=== PATIENT | male | born 1950 | race Caucasian/White ===

== ENCOUNTER 2020-07-23 06:52 | Outpatient (NON) | payer MEDICARE, OTHER, SELFPAY ==
[2020-07-23 19:59] LABS: SARS-CoV-2 RNA PCR Negative
== END 2020-07-23 06:53 ==
PROVIDERS: PCP Family Medicine; Visit Provider Physician Assistant
DX: Z20.828 Contact with and (suspected) exposure to other viral communicable diseases (principal)
CPT/HCPCS: 87635; C9803; U0003

== ENCOUNTER → 2021-09-04 10:14 | Outpatient (CLI) | payer MEDICARE, OTHER, SELFPAY ==
--- NOTE | ~2021-09-04 | XR_ITS ---
EXAMINATION: XR knee LT 2V DATE: 09/04/2021 10:30 INDICATION: Left knee pain TECHNIQUE: Two views of the left knee were obtained. COMPARISON: None. FINDINGS: Alignment is normal. No fracture or osteochondral lesion. There is mild tricompartmental os teoarthritis characterized by tiny marginal osteophytes and mild medial compartmental narrowing. A sm all joint effusion is present. Soft tissues are unremarkable. IMPRESSION: 1. Mild osteoarthritis with small joint effusion. Reviewed, dictated and finalized at location A. YNAECOLOGIST
== END ==
PROVIDERS: PCP Physician Assistant; Visit Provider Physician Assistant
DX: M25.462 Effusion, left knee (principal); M17.12 Unilateral primary osteoarthritis, left knee
CPT/HCPCS: 73560

== ENCOUNTER 2022-02-18 08:58 | Outpatient (CLI) | payer MEDICARE, OTHER, SELFPAY ==
--- NOTE | ~2022-02-18 | MR_ITS ---
EXAMINATION: MR knee LT wo con DATE: 02/18/2022 09:51 INDICATION: Left knee pain post baseball injury TECHNIQUE: Magnetic resonance imaging (MRI) of the left knee was performed without intravenous contra st. Sequences included coronal PD-weighted FSE, coronal PD-weighted FS FSE, sagittal T2-weighted FSE , sagittal PD-weighted FS FSE and axial PD weighted fat saturated FSE. COMPARISON: None. FINDINGS: Medial compartment: Complex tear at the posterior horn and medial extruded body of the medial meniscus. Partial-thickness chondral ulceration and fissuring without degenerative subchondral changes along the anterior to misa tral weightbearing medial femoral condyle and medial tibial plateau. Lateral compartment: Lateral meniscus is normal. Deep chondral fissuring with small focus of edema-like signal change at t he posterior aspect of the lateral tibial plateau. Patellofemoral compartment: Deep chondral ulceration along the mid to inferior aspect of the medial and lateral trochlea and inte rvening trochlear groove. A small mild cortical irregularity with small central subchondral osteophyt e and mild subarticular edema-like signal change at the medial trochlea. Deep chondral fissuring with tiny focus of subarticular edema-like signal change at the patellar apical ridge. Less severe partia l thickness chondral ulceration and fissuring without degenerative subchondral changes at the medial patellar facet and medial margin of the lateral facet. Ligaments and tendons: Anterior and posterior cruciate ligaments are normal. The fibular collateral ligament complex is norm al. Mild thickening and minimal increased signal of the proximal medial collateral ligament without s urrounding edema consistent with mild scarring related to chronic sprain. Patellar tendon is normal. Mild distal quadriceps tendinopathy. The visualized medial and lateral hamstring tendons as well as t he iliotibial band are normal. Fluid: Very small left knee joint effusion at the suprapatellar pouch. There is also a small Cason's cyst. N o loose osteochondral bodies identified. Osseous/other: Bone alignment is normal. No fracture or pathologic marrow replacing process. Low signal intensity [place] along the posterior weightbearing medial femoral condyle. IMPRESSION: 1. Complex tear of the body and posterior horn of the medial meniscus. 2. Mild tricompartmental osteoarthritis with regions of high-grade chondromalacia in the patellofemor al and lateral compartments and more extensive moderate grade chondromalacia in the medial compartmen t. 3. Mild scarring related to chronic sprain of the proximal medial collateral ligament. 4. Very small left knee joint effusion and small Cason's cyst. Reviewed, dictated and finalized at location B. IMPRESSION: 1. Complex tear of the body and posterior horn of the medial meniscus. 2. Mild tricompartmental osteoarthritis with regions of high-grade chondromalac ia in the patellofemoral and lateral compartments and more extensive moderate g rade chondromalacia in the medial compartment. 3. Mild scarring related to chronic sprain of the proximal medial collateral li gament. 4. Very small left knee joint effusion and small Cason's cyst.
== END 2022-02-18 08:59 | disposition home or self-care (01) ==
LOC: ANHIMG 09:00
PROVIDERS: PCP Physician Assistant; Visit Provider Physician Assistant
DX: S83.232A Complex tear of medial meniscus, current injury, left knee, initial encounter (principal); X58.XXXA Exposure to other specified factors, initial encounter; M17.12 Unilateral primary osteoarthritis, left knee; M25.462 Effusion, left knee
CPT/HCPCS: 73721

== ENCOUNTER 2022-04-08 12:44 | Outpatient (CLI) | payer MEDICARE, OTHER, SELFPAY ==
--- NOTE | 2022-04-08 12:51 | ECG_ITS ---
Measurements Intervals [place] Rate: 53 P: 24 TN: 190 QRS: 2 QRSD: 111 T: 34 QT: 400 QTc: 378 Interpretive Statements SINUS BRADYCARDIA DELAYED PRECORDIAL R/S TRANSITION CONSIDER INFERIOR INFARCT, AGE INDETERMINATE ABNORMAL ECG Electronically Signed On 04-08-2022 13:09:31 CDT by Ryan Hendrix D.O.
== END 2022-04-08 12:45 | disposition home or self-care (01) ==
PROVIDERS: PCP Physician Assistant; Visit Provider Orthopaedic Surgery
DX: I10 Essential (primary) hypertension (principal); Z01.818 Encounter for other preprocedural examination; R94.31 Abnormal electrocardiogram [ECG] [EKG]
CPT/HCPCS: 93005

== ENCOUNTER 2022-04-11 00:14 | Day surgery (SDC) | payer MEDICARE, OTHER, SELFPAY ==
--- NOTE | 2022-04-04 15:20 | PC.NURSE ---
Report to the Outpatient Waiting Room, entrance under the green pavilion located off [facility], at time _0700 on date __04/11/22 . OR Time: __0900 . - You and your visitor will be asked a series of questions to screen for COVID 19 for your protection. - Only one visitor is allowed at this time. - The patient visitor is requested to leave or wait in car when not with patient. - A mask is required within the hospital. Patients may have clear liquids (water, carbonated beverages, clear teas, apple juice) until 3 hours prior to surgery with a maximum of 20 ounces. - No food from midnight until time of surgery - Infants may have breast milk until 4 hours before surgery, infant formula 6 hours prior to surgery. - Children will be allowed to drink immediately following surgery. If applicable, please bring a bottle or sippy cup to assist with drinking. Juice, water, soda, and popsicles are readily available. For infants on formula, please bring formula the day of surgery. Pacifiers are allowed. Take the following medications with a SIP of water the morning of surgery: ____METOPROLOL Medications to discontinue per physician __PT STATES ASPIRIN 7 DAYS PRE OP. _ ALL VITAMINS AND SUPPLEMENTS 3 DAYS PRE OP Date to take last dose___04/03/22____ALL VIT/SUPP 04/07/22 Please no make-up, nail danish, hairspray, perfume, deodorant, or body powder the day of surgery. No jewelry (including any body piercings) or valuables the day of surgery, leave them at home. Please take a shower or bath the night before, or the morning of, surgery with an antibacterial soap. Wear comfortable, loose fitting clothing. Children are encouraged to wear pajamas. - Jewelry must be removed prior to entering the operating room. Rings and piercings that are not removed may be cut off. - The hospital will not accept responsibility for valuables. - Please leave all valuables, including medications, at home the day of surgery. If you are going home after surgery, a licensed passenger coach driver must drive you home. - NO public transportation without another adult. - We recommend that an adult stay with you for 24 hours following discharge. - We also recommend that you do not drive, make important decision, drink alcoholic beverages, or take any drugs that were not prescribed by your health care provider for at least 24 hours after your discharge time. For Pediatric surgeries, we recommend two adults accompany the child home (only one inside the building at this time). Follow any additional instructions given to you from your surgeon. If you or anyone in your household have experienced Covid symptoms in the past week, please notify your surgeon or the nurse liaison at the phone number below for possible testing. Telephone instructions given to __PATIENT and asked if any additional questions and then verbalized understanding. Patient advised to call surgeon office or pre surgery nurse liaison [phone] if any additional questions.
[2022-04-04 15:30] VITALS: BMI 29.2
--- NOTE | 2022-04-10 10:42 | WPDANESEPPF ---
Anes - Initial Pre Proc Eval Procedure: Operation Date: 04/11/22 09:00 Proposed Procedures p Left Knee Arthroscopy, Proceed As Indicated - Jesus Rivers MD <Obdulio Davison MD - Last Filed: 04/10/22 10:43> Date/Time: 04/10/22 10:42 <Obdulio Davison MD - Last Filed: 04/10/22 10:43> Surgeon: Jesus Rivers MD <Obdulio Davison MD - Last Filed: 04/10/22 10:43> Pre Op Diagnosis: left knee medial meniscus tear <Obdulio Davison MD - Last Filed: 04/10/22 10:43> Patient Data Age: 72 Gender: M Height: 1.83 m Weight: 97.6 kg <Obdulio Daviosn MD - Last Filed: 04/10/22 10:43> Allergies Allergy/AdvReac Type Severity Reaction Status Date / Time CATS Allergy Mild EYES Uncoded 04/04/22 15:08 ITCHING DUST Allergy Mild Itching Uncoded 04/11/22 08:02 <Obdulio Davison MD - Last Filed: 04/10/22 10:43> Home Medications Medication Instructions Recorded Confirmed Type atorvastatin 10 mg tablet 10 mg PO EVERY OTHER DAY 03/13/22 04/04/22 History fluticasone propionate 50 2 spray intranasal DAILY 03/13/22 04/04/22 History mcg/actuation nasal spray,suspension (Allergy Relief (fluticasone)) lisinopril 20 mg tablet 20 mg PO DAILY 03/13/22 04/04/22 History metoprolol succinate 100 mg 100 mg PO DAILY 03/13/22 04/04/22 History tablet,extended release 24 hr xmfejyon-omz-ltzdp acid 300 1 tablet PO DAILY 03/13/22 04/04/22 History mcg-lycopene 600 mcg-lutein 300 mcg tablet (Centrum Silver Men) omega-3 fatty acids-fish oil 340 1 cap PO DAILY 03/13/22 04/04/22 History mg-1,000 mg capsule (Fish Oil) omeprazole 20 mg capsule,delayed 20 mg PO DAILY 03/13/22 04/04/22 History release aspirin 81 mg tablet,delayed 81 mg PO HS 07/15/22 07/15/22 History release (Adult Low Dose Aspirin) chlorhexidine gluconate 4 % 1 applic topical ONCE #237 mL 04/04/22 04/04/22 Rx topical liquid (Hibiclens) <Obdulio Davison MD - Last Filed: 04/10/22 10:43> Patient hx anesthesia problems: none <Delonte Winkler DO - Last Filed: 04/11/22 08:20> Family hx anesthesia problems: none <Delonte Winkler DO - Last Filed: 04/11/22 08:20> Results Review: All pre-operative results and documents have been reviewed as part of the pre-operative evaluation. <Obdulio Davison MD - Last Filed: 04/10/22 10:43> [facility] Past Medical History Medical History: Medical History (Updated 04/10/22 @ 10:43 by Obdulio Davison MD) Arthritis HTN (hypertension) Hyperlipidemia Medial meniscus tear Ureterolithiasis <Obdulio Davison MD - Last Filed: 04/10/22 10:43> Family History Family History: Family History (Updated 05/18/14 @ 07:13 by DOCTOR UNKNOWN) Mother Family history of congestive heart failure Other Family history of cardiovascular disease Hypertension <Obdulio Davison MD - Last Filed: 04/10/22 10:43> Social History Social History: Social History (Updated 03/13/22 @ 11:33 by Josie Yan MA) Smoking status: Never smoker Alcohol intake: current Drinks per week: 1 Substance use: never Living arrangements: with family Gender identity (if verbalized by the patient): Male Spiritual care concerns: No <Obdulio Davison MD - Last Filed: 04/10/22 10:43> Anes - Eval Final PreProcedure Day of Procedure 04/10/22 10:42 <Obdulio Davison MD - Last Filed: 04/10/22 10:43> Patient weight: overweight <Obdulio Davison MD - Last Filed: 04/10/22 10:43> Heart: regular rate and rhythm <Obdulio Davison MD - Last Filed: 04/10/22 10:43> Lungs: clear to auscultation and normal air movement <Obdulio Davison MD - Last Filed: 04/10/22 10:43> Airway: Mallampati scale class II <Obdulio Davison MD - Last Filed: 04/10/22 10:43> Neurological: alert and oriented <Obdulio Davison MD - Last Filed: 04/10/22 10:43> Last oral intake: >/= 8 hours <Obdulio Jara
[2022-04-11] VITALS (8 sets, daily range): BP systolic 121–135; BP diastolic 68–85; PULSE 49–56; RESP 10–18; TEMP 36.5–36.6; O2SAT 96–100
--- NOTE | 2022-04-11 07:15 | WPDHPUPDATE1 ---
History and Physical Update Update Date/Time: 04/11/22 07:15 History and Physical has been reviewed, including an updated exam of the patient. There are NO changes in the patient's condition. Risks, benefits, and alternatives have been discussed and questions answered. Patient agrees to proceed with procedure.
[2022-04-11] MEDS: LACTATED RINGERS 1,000 ML 30 ML IV CONT ×2 (07:52→10:36)
[2022-04-11] MEDS: CELECOXIB 200 MG CAPSULE PO (07:53)
[2022-04-11] MEDS: ACETAMINOPHEN 500 MG TABLET 1000 MG PO (07:53)
[2022-04-11] MEDS: ceFAZolin 2 GM/D5W 50 ML 2 GM/50 ML BAG IVPB (09:23)
[2022-04-11] MEDS: BUPIVACAINE HCL 0.5% PF 30 ML VIAL INFILTRATE (09:44)
[2022-04-11] MEDS: methylPREDNISolone ACETATE 80 MG/ML VIAL IM (10:23)
--- NOTE | 2022-04-11 11:05 | W.PM.PROC2 ---
Procedure Note - Detailed Date of Procedure 04/11/22 Pre-op Diagnosis left knee medial meniscus tear Post-op Diagnosis Same Procedure Performed LEFT KNEE SCOPE Surgeon Jesus Rivers MD Anesthesia General Description of Procedure PATIENT WAS TAKEN TO THE OR. LEFT LEG WAS PREPPED AND DRAPED STERILE. TROCARS WERE PLACED IN THE USUAL FASHION. CAMERA WAS INTRODUCED. THERE WAS CHONDROMALACIA TO THE PATELLA FEMORAL JOINT. THERE WAS A LOT OF SYNOVITIS IN ALL COMPARTMENTS. THE MEDIAL COMPARTMENT SHOWED CHONDROMALACIA TO THE MEDIAL FEMORAL CONDYLE. A SHAVER WAS USED TO PREFORM A CHONDROPLASTY. THERE WAS A COMPLEX MEDIAL MENISCUS TEAR. THE TEAR WAS RESECTED WITH A BITER AND A SHAVER DOWN TO A SMOOTH BASE. ABOUT 30% OF THE MENISCUS WAS REMOVED. THE ACL WAS INTACT. THE LATERAL MENISCUS WAS NOT TORN. THE LAT COMPARTMENT HAD MINIMAL CHONDROMALACIA. CHONDROPLASTY WAS PREFORMED. A SYNOVECTOMY WAS PREFORMED WELL. THE PATELLO FEMORAL JOINT UNDERWENT CHONDROPLASTY. THERE WAS GRADE 3 CHONDROMALACIA IN PART OF THE TROCHLEA AND GRADE 2 OVER THE PATELLA. SYNOVECTOMY WAS PREFORMED IN THE SUPERIOR MEDIAL COMPARTMENT. THE WOUNDS WERE APPROXIMATED WITH 4.0 NYLON. STERILE DRESSING WAS APPLIED. PATIENT WAS EXTUBATED. Estimated Blood Loss 5 Complications No immediate complications Condition Stable Disposition PACU
== END 2022-04-11 12:25 | disposition home or self-care (01) ==
PROVIDERS: PCP Physician Assistant; Visit Provider Orthopaedic Surgery
PROC: (CPT 29870; principal; 2022-04-11 09:00)
DX: S83.232A Complex tear of medial meniscus, current injury, left knee, initial encounter (principal); M22.42 Chondromalacia patellae, left knee; M65.862 Other synovitis and tenosynovitis, left lower leg; X50.0XXA Overexertion from strenuous movement or load, initial encounter; I10 Essential (primary) hypertension; E78.5 Hyperlipidemia, unspecified; Z79.82 Long term (current) use of aspirin
CPT/HCPCS: 29881; A9270; J0690; J1040; J1100; J2405; J2704; J3010; J7120

== ENCOUNTER 2022-11-11 00:21 | Day surgery (SDC) | payer MEDICARE, OTHER, SELFPAY ==
[2022-10-27 09:51] VITALS: BMI 29.2
--- NOTE | 2022-11-10 15:31 | P.PNAN_ITS ---
Anes - Initial Pre Proc Eval Procedure: Operation Date: 11/11/22 09:00 Proposed Procedures p Colonoscopy - Cedric Armas MD Date/Time: 11/10/22 15:31 Surgeon: Cedric Armas MD Pre Op Diagnosis: neoplasia screening Patient Data Age: 72 Gender: M Height: 1.83 m Weight: 97.8 kg Allergies Allergy/AdvReac Type Severity Reaction Status Date / Time cat dander Allergy Itching Verified 11/11/22 07:39 DUST Allergy Mild Itching Uncoded 11/11/22 07:39 Home Medications Medication Instructions Recorded Confirmed Type fluticasone propionate 50 2 spray intranasal DAILY 03/13/22 11/11/22 History mcg/actuation nasal spray,suspension (Allergy Relief (fluticasone)) lisinopril 20 mg tablet 20 mg PO DAILY 03/13/22 11/11/22 History metoprolol succinate 100 mg 100 mg PO DAILY 03/13/22 11/11/22 History tablet,extended release 24 hr ccdqckza-lyn-zotmi acid 300 1 tablet PO DAILY 03/13/22 11/11/22 History mcg-lycopene 600 mcg-lutein 300 mcg tablet (Centrum Silver Men) omega-3 fatty acids-fish oil 340 1 cap PO DAILY 03/13/22 11/11/22 History mg-1,000 mg capsule (Fish Oil) aspirin 81 mg tablet,delayed 81 mg PO HS 04/04/22 11/11/22 History release (Adult Low Dose Aspirin) atorvastatin 10 mg tablet 10 mg PO EVERY OTHER DAY #45 tabs 09/24/22 11/11/22 Rx omeprazole 20 mg capsule,delayed 20 mg PO DAILY #90 caps 09/24/22 11/11/22 Rx release Patient hx anesthesia problems: none Family hx anesthesia problems: none Results Review: All pre-operative results and documents have been reviewed as part of the pre- operative evaluation. [facility] Past Medical History Medical History (Updated 11/11/22 @ 08:23 by Cedric Armas MD) Arthritis GERD (gastroesophageal reflux disease) HTN (hypertension) Hyperlipidemia Medial meniscus tear Ureterolithiasis Family History Family History Mother Family history of congestive heart failure Other Family history of cardiovascular disease Hypertension Social History Social History (Reviewed 05/02/22 @ 14:40 by ZI Izquierdo Smoking status: Never smoker Alcohol intake: current Drinks per week: 1 Alcohol use details: beer Substance use: never Substance use type: does not use Living arrangements: with family Occupation/Education: retired Gender identity (if verbalized by the patient): Male Spiritual care concerns: No Anes - Eval Final PreProcedure Day of Procedure 11/10/22 15:31 Patient weight: overweight Heart: regular rate and rhythm Lungs: clear to auscultation Airway: Mallampati scale class II Neurological: alert and oriented Last oral intake: >/= 8 hours ASA classification: II Emergent: no Anesthetic plan: proceed Anesthesia type and monitoring: general GIVS and standard monitoring Results Review: All pre-operative results and documents have been reviewed as part of the pre- operative evaluation. Informed Consent: The patient's anesthetic plan and its attendant risks and benefits were discussed with the patient/family/POA. Questions were solicited and answers provided to the satisfaction of the patient/family/POA.
[2022-11-11 07:40] VITALS: BP 156/84; PULSE 51; RESP 18; TEMP 36.1; O2SAT 99
[2022-11-11] MEDS: LACTATED RINGERS 1,000 ML 150 ML IV CONT (07:46)
--- NOTE | 2022-11-11 08:21 | PM.HPGS ---
History of Present Illness History of Present Illness Consent: Risks, benefits, and alternatives have been discussed and questions answered. Patient agrees to proceed with procedure. Chief complaint: neoplasia screening Narrative: Markos Shahid is a 72 year old male Presents for screening colonoscopy. Patient's current weight appetite bowel movements are normal. Patient denies abdominal pain. He has had no bleeding. Family history noncontributory. He did have a benign hyperplastic colon polyp 6 years ago. Patient presents today for screening colonoscopy. Review of Systems Review of Systems: Review of systems noncontributory. [facility] Past Medical History Medical History (Updated 11/11/22 @ 08:23 by Cedric Armas MD) Arthritis GERD (gastroesophageal reflux disease) HTN (hypertension) Hyperlipidemia Medial meniscus tear Ureterolithiasis Family History Family History Mother Family history of congestive heart failure Other Family history of cardiovascular disease Hypertension Social History Social History Smoking status: Never smoker Alcohol intake: current Drinks per week: 1 Alcohol use details: beer Substance use: never Substance use type: does not use Living arrangements: with family Occupation/Education: retired Gender identity (if verbalized by the patient): Male Spiritual care concerns: No Meds Home Medications and Allergies Home Medications Medication Instructions Recorded Confirmed Type fluticasone propionate 50 2 spray intranasal DAILY 03/13/22 11/11/22 History mcg/actuation nasal spray,suspension (Allergy Relief (fluticasone)) lisinopril 20 mg tablet 20 mg PO DAILY 03/13/22 11/11/22 History metoprolol succinate 100 mg 100 mg PO DAILY 03/13/22 11/11/22 History tablet,extended release 24 hr ndumupqp-bly-xwpvg acid 300 1 tablet PO DAILY 03/13/22 11/11/22 History mcg-lycopene 600 mcg-lutein 300 mcg tablet (Centrum Silver Men) omega-3 fatty acids-fish oil 340 1 cap PO DAILY 03/13/22 11/11/22 History mg-1,000 mg capsule (Fish Oil) aspirin 81 mg tablet,delayed 81 mg PO HS 04/04/22 11/11/22 History release (Adult Low Dose Aspirin) atorvastatin 10 mg tablet 10 mg PO EVERY OTHER DAY #45 tabs 09/24/22 11/11/22 Rx omeprazole 20 mg capsule,delayed 20 mg PO DAILY #90 caps 09/24/22 11/11/22 Rx release Allergies Allergy/AdvReac Type Severity Reaction Status Date / Time cat dander Allergy Itching Verified 11/11/22 07:39 DUST Allergy Mild Itching Uncoded 11/11/22 07:39 Vital Signs Vital Signs - 24 hr 11/11/22 07:40 Temperature 97 F L Pulse Rate 51 L Respiratory Rate 18 Blood Pressure 156/84 H Pulse Oximetry 99 Oxygen Delivery Room Air Exam Narrative: Physical exam reveals patient to be alert. Vital signs stable. HEENT exam is unremarkable. Patient is anicteric. Lungs are clear to auscultation and percussion. Heart is without murmur or extra sounds. Abdomen bowel sounds present soft nontender with no organomegaly. Digital external rectal exam normal. Assessment and Plan Assessment and plan (1) Encounter for screening colonoscopy: Code(s): Z12.11 - Encounter for screening for malignant neoplasm of colon Status: Acute Assessment and Plan: Patient presents for screening colonoscopy. Further recommendations will be given after endoscopy.
[2022-11-11 09:28] VITALS: BP 129/84; PULSE 53; RESP 23; O2SAT 100
--- NOTE | 2022-11-11 09:37 | SUR.OPER ---
No specimen obtained. Dr Armas aware. No new orders.
[2022-11-11 09:38] VITALS: BP 132/83; PULSE 51; RESP 22; O2SAT 98
[2022-11-11 09:48] VITALS: BP 139/84; PULSE 53; RESP 17; O2SAT 99
== END 2022-11-11 09:53 | disposition home or self-care (01) ==
PROVIDERS: PCP Physician Assistant; Visit Provider Internal Medicine Gastroenterology
PROC: 0DJD8ZZ Inspection of Lower Intestinal Tract, Via Natural or Artificial Opening Endoscopic (ICD-10-PCS; CPT 45378; principal; 2022-11-11 09:00)
DX: Z12.11 Encounter for screening for malignant neoplasm of colon (principal); K63.5 Polyp of colon; K64.8 Other hemorrhoids; I10 Essential (primary) hypertension; E78.5 Hyperlipidemia, unspecified; K21.9 Gastro-esophageal reflux disease without esophagitis; Z79.82 Long term (current) use of aspirin
CPT/HCPCS: 45385; J2704; J7120